=== PATIENT | male | born 1955 | race Caucasian/White ===

== ENCOUNTER 2023-08-19 11:35 | Emergency (ER) | payer OTHER, BC ==
[2023-08-19] MEDS ORDERED: Lidocaine 2% 20 ML MDV INFILT ONE (11:36)
== END 2023-08-19 14:40 | disposition home or self-care (01) ==
LOC: FB.ED 11:35
DX: S61.213A Laceration without foreign body of left middle finger without damage to nail, initial encounter (principal); W31.2XXA Contact with powered woodworking and forming machines, initial encounter; Y92.79 Other farm location as the place of occurrence of the external cause
CPT/HCPCS: 12001; 73130-LT; 99283